=== PATIENT | female | born 1995 ===

== ENCOUNTER 2025-02-13 15:19 | Emergency (ER) | payer MEDICAID, SELFPAY ==
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
[2025-02-13 15:34] VITALS: BP 144/99; PULSE 115; RESP 18; TEMP 36.9; O2SAT 99; BMI 23.9
[2025-02-13] MEDS: DIPHTH,PERTUSS(ACELL),TET VAC 0.5 ML SYR- ADULT IMi (15:40)
[2025-02-13] MEDS: IBUPROFEN TAB 400 MG TABLET 800 MG PO (15:40)
--- NOTE | 2025-02-13 15:52 | PC.NURSE ---
called [place] [employer] and spoke with Cooc gave her all requested information, Coco states that she will send an officer here to talk with pt.
== END 2025-02-13 16:23 | disposition home or self-care (01) ==
LOC: SERX 15:51
PROVIDERS: Emergency Provider Emergency Medicine; PCP Family Medicine
DX: S01.01XA Laceration without foreign body of scalp, initial encounter (principal); Y04.2XXA Assault by strike against or bumped into by another person, initial encounter; Z23 Encounter for immunization
CPT/HCPCS: 12001; 90471; 90715; 99282; A9270